=== PATIENT | female | born 2000 | race Caucasian/White ===

== ENCOUNTER 2023-06-21 18:25 | Emergency (ER) | payer OTHER, SELFPAY ==
[2023-06-21 18:55] VITALS: BP 133/68; PULSE 83; RESP 18; TEMP 36.9; O2SAT 99; BMI 19.5
--- NOTE | 2023-06-21 19:01 | DI.RAD.S_ITS ---
PROCEDURE: XR HAND RT MIN 3V INDICATIONS: animal bite/wound TECHNIQUE: 3 views of the hand(s) acquired. COMPARISON: None. FINDINGS: Bones: No fractures or dislocations. Carpal bones are normally aligned. No suspicious bony lesions. Soft tissues: Overlying bandage limits evaluation of soft tissue. No radiodense foreign body visualized. Subcutaneous lucency between the 4th and 5th MCP joints likely represent site of wound. No suspicious soft tissue calcifications. IMPRESSION: No acute bony abnormality. No radiodense foreign body visualized. Soft tissue lucency between the 4th and 5th MCP joints likely likely represent site of wound. Approved by: Carmen Lan M.D. on 06/21/2023 at 20:44
== END 2023-06-22 00:57 | disposition left against medical advice (07) ==
PROVIDERS: Emergency Provider Emergency Medicine
DX: S61.451A Open bite of right hand, initial encounter (principal); W54.0XXA Bitten by dog, initial encounter
CPT/HCPCS: 73130; 99281

== ENCOUNTER → 2024-06-01 13:37 | Outpatient (CLI) | payer OTHER, SELFPAY ==
--- NOTE | 2024-06-01 13:38 | DI.US.S_ITS ---
PROCEDURE: US OB >= 14 WEEKS FETUS INDICATIONS: ANATOMY OUTSIDE/PRIOR DATING DATA: Last menstrual period (LMP): 01/12/2024. LMP-based estimated date of delivery (ERIKA): 10/18/2024. First dating scan (date and location): 03/13/2024. Estimated date of delivery (ERIKA) from first dating scan: 10/21/2024. The calculations are made using the clinical ERIKA of 10/18/2024. TECHNIQUE: Real-time scanning was performed of the fetus, with image documentation and biometric measurements. Endovaginal scanning: Not performed COMPARISON: None. FINDINGS: General: A single living intrauterine gestation is present. Presentation: Variable. Placenta: Placental position is posterior. Low lying 1.9 cm from the internal cervical os. Amniotic fluid index: 20.2 cm, normal range is 5-24 cm. Single deepest vertical pocket is 7.4 cm. heart rate: 144 beats per minute. Maternal cervical canal: 4 cm long. Normal lower limit is 2.5 cm. biometrics: Biparietal diameter: 4.5 cm, 19 weeks 4 days Head circumference: 16.2 cm, 19 weeks 0 days. 5th percentile. Abdominal circumference: 15.7 cm, 20 weeks 6 days Femur length: 3.1 cm, 19 weeks 4 days Clinically estimated gestational age: 20 weeks 1 days Composite gestational age from present scan: 19 weeks 5 days Estimated weight and percentile: 330 g, 41st percentile Anatomic survey: Neuro: Ventricles are non-dilated at less than 10 mm. Cisterna magna is normal at 3-11 mm. Cerebellum is normal in size and morphology. Nuchal skin fold: Normal at less than 6 mm between 14-21 weeks gestational age. Face: Nose and lips, facial profile are normal. Spine: No evidence for spina bifida. Heart: 4-chambered heart is present, with normal ventricular outflow tracts. Diaphragm: Diaphragm is intact. Stomach: Left-sided stomach is present. Kidneys: No hydronephrosis. Normal is less than 5 mm in 2nd trimester, less than 7 mm in 3rd trimester. Cord: 3-vessel cord has orthotopic insertion. Bladder: Normal in size. Extremities: All 4 extremities identified. IMPRESSION: 1. Gong living intrauterine at 19 weeks 5 days based on today's ultrasound. Fetus is at the 41st percentile for weight. Head circumference measures at the 5th percentile. 2. Normal amniotic fluid. Placenta is low-lying 1.9 cm from the internal cervical os. 3. Normal and complete anatomic survey. Recommend follow-up OB ultrasound. We strive to produce accurate, complete, and clear reports of imaging services. To assist us in improving patient care, this report was composed using standard report templates and voice recognition software. Therefore, it may contain abnormal punctuation, insertions and/or omissions. Occasional wrong-word or sound-alike substitutions may occur. Though we review the report and make efforts to correct it, we do recommend that the report be read carefully in proper context to recognize any text inaccuracies. Dictated by: Benoit Gordon M.D. on 06/01/2024 at 21:07 Approved by: Benoit Gordon M.D. on 06/01/2024 at 21:13
== END ==
PROVIDERS: Referring Provider Nurse Practitioner Obstetrics & Gynecology; Visit Provider Nurse Practitioner Obstetrics & Gynecology
DX: O44.42 Low lying placenta NOS or without hemorrhage, second trimester (principal); Z3A.19 19 weeks gestation of pregnancy
CPT/HCPCS: 76811

== ENCOUNTER → 2024-07-05 13:34 | Outpatient (CLI) | payer OTHER, SELFPAY ==
--- NOTE | 2024-07-05 13:35 | DI.ECHO.S_ITS ---
[facility] : : [address] : : [place] : : [id number] : : Phone: [phone] Echocardiogram Report + + :Name: RADHA HULL Study Date: 07/05/2024 Height: 63 in : :[facility] ReadingLocation: Weight: 120 lb : : Gender: Female BSA: 1.6 m2 : :: 2000 Age: 23 yrs BP: 106/65 mmHg: :Reason For Study: CARDIAC MURMUR : :Ordering Physician: NKECHI PEREZ Performed By: Eliza Dawkins : :Referring: NKECHI PEREZ : + + Interpretation Summary 1. Left ventricular contractility is normal. Estimate ejection fraction is greater than 65% with no segmental wall motion abnormalities. No LVH. Normal diastolic function. 2. The right ventricular contractility is normal. 3. Left atrial enlargement noted. All other cardiac chambers are of normal size. 4. Mild pulmonic insufficiency. 5. No intracardiac shunts noted on agitated saline contrast study. 6. No obvious intracardiac masses nor thrombi. 7. No hemodynamically significant pericardial effusion. 8. Low right-sided filling pressures. Conclusion: Normal biventricular function with mild pulmonic insufficiency and isolated left atrial enlargement. Procedure: A two-dimensional transthoracic echocardiogram with color flow and Doppler was performed. The study quality was technically adequate. There is no prior echocardiogram noted for this patient. A saline contrast injection was performed to assess for cardiac shunting. The injection was performed through an intravenous line in the left arm. The patient was in sinus rhythm with heart rates between 65-78 bpm during the exam. Left Ventricle: The left ventricle is normal in size and wall thickness. The ejection fraction is estimated to be 65-70%. Right Ventricle: The right ventricle is normal in size and function. Atria: The left atrium is mildly dilated. Right atrial size is normal. There is no Doppler evidence for an interatrial shunt. Injection of contrast documented no interatrial shunt. Mitral Valve: The mitral valve leaflets appear to open well. There is no mitral annular calcification. There is trace mitral regurgitation. Aortic Valve: The aortic valve is trileaflet. The aortic valve opens well. There is no aortic valve stenosis. No aortic regurgitation is present. Tricuspid Valve: The tricuspid valve leaflets are thin and pliable. There is trace tricuspid regurgitation. Pulmonic Valve: The pulmonic valve leaflets are thin and pliable; valve motion is normal. There is mild pulmonic regurgitation. Great Vessels: The aortic root is normal size. The dimensions of the ascending aorta are normal. The IVC is of normal diameter and collapses greater than 50% with a sniff. This suggests a low right atrial pressure of 3 mm Hg. Pericardium/ Pleura There is no pericardial effusion. There is no pleural effusion. MMode/2D Measurements & Calculations LVIDd: 4.4 cm LVOT diam: 1.8 cm LVIDs: 2.7 cm Ao root diam: 2.2 cm FS: 38.2 % asc Aorta Diam: 2.5 cm EPSS: 0.18 cm Ao Arch Diam (Prox Trans): 2.3 cm IVSd: 0.63 cm LVPWd: 0.56 cm LV rg. diameter/BSA (cm/m^2): 2.8 LV sys. diameter/BSA (cm/m^2): 1.7 LA A2 area: 17.7 cm2 RA long axis: 4.8 cm LA A4 area: 16.9 cm2 RA area: 14.1 cm2 LA length (vol): 4.7 cm RA vol: 35.2 ml LA vol: 54.3 ml RA : 22.6 ml/m2 LA vol index: 34.9 ml/m2 IVC diam: 1.4 cm RVD1 (basal): 3.2 cm RVD2 (mid): 3.2 cm TAPSE: 2.1 cm Doppler Measurements & Calculations Ao V2 max: 176.2 cm/sec LVOT Max Rj: 132.9 cm/sec Ao V2 mean: 116.8 cm/sec LV V1 max P.1 mmHg Ao max P.4 mmHg LV V1 VTI: 28.3 cm Ao mean P.2 mmHg CAROLINE(I,D): 1.9 cm2 Ao V2 VTI: 36.7 cm CAROLINE(V,D): 1.8 cm2 sev ratio: 0.77 CAROLINE indexed to BSA (cm^2/m^2): 1.2 MV E max rj: 130.7 cm/sec PA V2 max: 129.1 cm/sec MV A max rj: 54.4 cm/sec PA V2 mean: 84.7 cm/sec MV E/A: 2.4 PA mean P.2 mmHg Med Peak E' Rj: 15.0 cm/sec PA pr(Accel): 26.3 mmHg E/E' med: 8.7 Lat Peak E' Rj: 21.3 cm/sec E/E' lat: 6.1 E/e' average: 7.4 MV dec time: 0.13 sec MVA(VTI): 2.2 cm2 MV V2 mean: 60.8 cm/sec SV(LVOT): 69.5 ml MV mean P.9 mmHg MV V2 VTI: 32.1 cm Reading Physician:TONIA
== END ==
PROVIDERS: Referring Provider Internal Medicine; Visit Provider Internal Medicine
DX: I37.1 Nonrheumatic pulmonary valve insufficiency (principal); R01.1 Cardiac murmur, unspecified
CPT/HCPCS: 93306

== ENCOUNTER → 2024-08-10 13:41 | Outpatient (CLI) | payer OTHER, SELFPAY ==
--- NOTE | 2024-08-10 13:42 | DI.US.S_ITS ---
PROCEDURE: US OB LIMITED INDICATIONS: FOLLOW UP PREVIA, GROWTH AND BPP OUTSIDE/PRIOR DATING DATA: Last menstrual period (LMP): January 12, 2024. LMP-based estimated date of delivery (ERIKA): October 18, 2024. First dating scan (date and location): March 13, 2024. Estimated date of delivery (ERIKA) from first dating scan: October 18, 2024. TECHNIQUE: Real-time scanning was performed of the fetus, with image documentation and biometric measurements. Endovaginal scanning: Not performed COMPARISON: [facility], OB >= 14 WEEKS FETUS, 06/01/2024, 13:43. FINDINGS: General: A single living intrauterine gestation is present. Presentation: Transverse head maternal right. Placenta: Placental position is posterior , without previa. No placenta previa visualized. Amniotic fluid index: 15.2 cm, normal range is 5-24 cm. Single deepest vertical pocket is 5.2 cm. heart rate: 132 beats per minute. Maternal cervical canal: 5.3 cm long. Normal lower limit is 2.5 cm. biometrics: Biparietal diameter: 7.7 cm, 30 weeks and 5 days Head circumference: 27.5 cm, 30 weeks and 0 days Abdominal circumference: 25.3 cm, 29 weeks and 3 days Femur length: 5.6 cm, 29 weeks and 2 days Clinically estimated gestational age: 30 weeks and 1 day Composite gestational age from present scan: 29 weeks and 6 days Estimated weight and percentile: 1410 g which correlates with the 19th percentile for gestational age Other: Biophysical profile score of 6 out of 8 with no respirations visualized. IMPRESSION: 1. Single living intrauterine gestation with estimated sonographic gestational age of approximately 29 weeks and 6 days. Estimated weight of approximately 1410 g which correlates with the 19th percentile for gestational age. Expected interval growth has occurred. 2. Biophysical profile score of 6 out of 8 (no respirations visualized). We strive to produce accurate, complete, and clear reports of imaging services. To assist us in improving patient care, this report was composed using standard report templates and voice recognition software. Therefore, it may contain abnormal punctuation, insertions and/or omissions. Occasional wrong-word or sound-alike substitutions may occur. Though we review the report and make efforts to correct it, we do recommend that the report be read carefully in proper context to recognize any text inaccuracies. Dictated by: Julio Walters M.D. on 08/10/2024 at 23:23 Approved by: Julio Walters M.D. on 08/10/2024 at 23:27
== END ==
PROVIDERS: Referring Provider Advanced Practice Midwife; Visit Provider Advanced Practice Midwife
DX: O44.03 Complete placenta previa NOS or without hemorrhage, third trimester (principal); Z3A.29 29 weeks gestation of pregnancy
CPT/HCPCS: 76815; 76819

== ENCOUNTER 2024-10-23 22:14 | Inpatient (IN) | payer OTHER, SELFPAY ==
--- NOTE | 2024-10-23 22:40 | PM.OBHP.1 ---
OB HPI Date/Time Date of admission: 10/23/24 Date Patient Seen: 10/23/24 Time Patient Seen: 22:40 History of Present Condition Chief complaint: LABOR : 1 Para: 0 Estimated Date of Delivery: 10/18/24 Estimated Gestational Age (weeks): 40w5d Narrative: Radha Choi is a 24 year old female at 40w5d by LMP and confirmed by early ultrasound and consistent with conception date. Radha had a membrane sweep this afternoon with CNM and called at 0 to report a gush of clear fluid with blood tinged mucus just prior to call. Had contractions starting approx 1800 coming approx every 3 minutes that became more intense with loss of fluld. Radha received care with CNMs complicated by heart mumur, evaluated by cardiology,diagnosed with mild pulmonic insufficiency and isolated left atrial enlargement but without concern for laboring. Radha's baby was in persistent breech presentation in 3rd trimester until 2nd ECV was successful on 10/02/2024. Baby has continued to be in a cephalic presentation since then and vertex was noted on exam in clinic and on admission today. Radha also had iron deficiency of treated with oral iron and IV iron dextran 500 mg dose x 1. She was planning an unmedicated , but is now reconsidering. Radha is well supported by her , Ever. They are excited to meet their son, Dennys. History of Present care: good care, initiated at week # (8), number of visits (13) and pounds weight gain (30) Dating criteria: LMP confirmed by 1st trimester US (and consistent with conception dating) Ultrasounds: normal 1st trimester US and normal mid trimester US Obstetrical complications: none (except as mentioned in HPI) Medical complications: cardiovascular (mild pulmonic insufficiency and isolated left atrial enlargement discovered during by ECHO) Preadmission Labs Blood type: O (+) positive -: Antibody screen: negative, Cystic fibrosis screen: unknown, GBS status: negative, HBsAG: negative, HIV: negative, HSV 1: unknown, HSV 2: unknown and RPR/VDLR: negative -: Chlamydia screen: not detected and Gonorrhea screen: not detected -: Rubella: immune and Varicella: immune HCT: 30.4 (38 at NOB, 31.3 at 27 weeks, 20.4 at 31 weeks with ferritin of 9 ) HCAB: negative PAP: Normal (April 2023.) Cell-free DNA: Negative screening x 3, XY 1 hr GTT: 120 Prior (ies) History: none Hx # Term Pregnancies: 0 Hx # Pregnancies: 0 Number of Living Children: 0 Multiple births: 0 Spontaneous abortions: 0 Ectopic pregnancies: 0 Elective abortions: 0 Evaluation Evaluation Baseline heart rate: 130 Variability: Moderate (6-25) monitor accelerations: Present Monitor Decelerations: Absent Contraction Frequency (minutes): 3 Uterine Contraction Intensity: Strong/Firm Status: Category l Dilation (cm): 4.5 Effacement (%): 90 Dilation: 3-4 cm Effacement: >/=80% station: 0 Position of cervix: mid Consistency: medium Jackson score: 9 PFSH Family History Grandmother Cancer Aunt Diabetes mellitus Mother Bipolar disorder Other Heart murmur Social History (Updated 10/24/24 @ 00:57 by Rebecca Reis CNM, JCARLOS) marital status: household members: spouse lives independently: Yes education level: college occupational status: employed current occupational exposures/hazards: No second hand exposure: No alcohol intake: former substance use type: does not use during the past year weight has: remained stable well-balanced diet: daily or most days Meds Home Medications and Allergies Allergies Allergy/AdvReac Type Severity Reaction Status Date / Time No Known Drug Allergies Allergy Verified 06/21/23 18:55 Review of Systems Review of Systems Narrative: negative except as mentioned in HPI OB Exam Vital signs Blood Pressure: 122/67 Pulse Rate: 64 Respiratory Rate: 18 Temperature: 98.3 F Objective Labs 10/23/24 22:45 Assessment and Plan Assessment and Plan Assessment and Plan narrative: at 40w5d by LMP Early labor SROM x 1 hour GBS negative FHR Cat 1 Admit to L&D for labor, usual labor orders. Epidural if desired. Anticipate NSVB. Time-Based Coding :: [TOTAL MINUTES] spent with patient and on the chart (including review of chart, obtaining history, exam, reviewing outside data, placing orders, documenting exam and treatment plan, and counseling patient) on [DATE].
[2024-10-23 23:02] LABS: Add Manual Diff / Slide Review NO; Hematocrit 34.6 % (36-46); Hemoglobin 12.1 g/dL (12.0-16.0); Lymphocytes Absolute Auto 2800 /uL (1100-4500); Mean Corpuscular HGB Conc 35.1 % (30-36); Mean Corpuscular Hemoglobin 32.5 PG (26-34); Mean Corpuscular Volume 92.5 fL (80-100); Platelet Count 261 X10^3/uL (150-400)
[2024-10-23] MEDS: ONDANSETRON 4 MG/2 ML INJ 8 MG IV (23:36)
--- NOTE | 2024-10-24 01:00 | PM.AN.REGBLK ---
Regional Block Pre-procedure PMH/ROS narrative: 24yr old requesting ABBIE with CSE for labor pain. Hx of echo during that showed mild pulmonic insufficiency and left atrial enlargement with no concerns for labor from cardiology ASA Class: II Labs: Hct 34.6 % (36-46) L 10/23/24 22:45 Plt Count 261 X10^3/uL (150-400) 10/23/24 22:45 Medications: Current Medications Generic Name Dose Route Start Last Admin Trade Name Freq PRN Reason Stop Dose Admin Acetaminophen 975 mg 10/23/24 22:33 Acetaminophen 325 Mg Tablet PO Q8H PRN Pain, Mild (1-3) Calcium Carbonate 1,000 mg 10/23/24 22:33 Calcium Carbonate 500 Mg Tab PO Q2HR PRN Dyspepsia Carboprost Tromethamine 250 mcg 10/23/24 22:33 Carboprost 250 Mcg/Ml Ampul IM Q90M PRN Bleeding Fentanyl 100 mcg 10/23/24 22:33 Fentanyl 100 Mcg/2 Ml Inj IV Q1H PRN Pain, Severe (7-10) Oxytocin/Lactated Ringer's 30 unit in 500 mls @ 200 mls/hr 10/23/24 22:33 Oxytocin Premix IV CONT PRN Bleeding Protocol Tranexamic Acid 1,000 mg/ 100 mls @ 600 mls/hr 10/23/24 22:33 Sodium Chloride IV NOW PRN Bleeding Lactated Ringer's 1,000 mls @ 100 mls/hr 10/23/24 22:45 Lactated Ringers IV 10/24/24 08:44 CONT CHEYANNE Lidocaine HCl 20 ml 10/23/24 22:33 Lidocaine 1% 20 Ml INJ INTRA-OP PRN Post Delivery Methylergonovine Maleate 0.2 mg 10/23/24 22:33 Methylergonovine 0.2 Mg Tablet PO Q6HR PRN Heavy Bleeding Methylergonovine Maleate 0.2 mg 10/23/24 22:33 Methylergonovine 0.2 Mg/Ml Vial IM NOW PRN Bleeding Mineral Oil 30 ml 10/23/24 22:33 Mineral Oil 30 Ml Udc TOP PRN PRN Version Misoprostol 800 mcg 10/23/24 22:33 Misoprostol 200 Mcg Tablet MT NOW PRN Bleeding Misoprostol 400 mcg 10/23/24 22:33 Misoprostol 200 Mcg Tablet SL NOW PRN Bleeding Naloxone HCl 0.2 mg 10/23/24 22:33 Naloxone 0.4 Mg/Ml Vial IV Q2MIN PRN Opiate Reversal Ondansetron HCl 8 mg 10/24/24 00:00 10/23/24 23:36 Ondansetron 4 Mg/2 Ml Inj IV 8 mg Q6HR CHEYANNE Administration Oxytocin 10 unit 10/23/24 22:33 Oxytocin 10 Unit/Ml Vial IM NOW PRN Bleeding Allergies: Allergies Allergy/AdvReac Type Severity Reaction Status Date / Time No Known Drug Allergies Allergy Verified 06/21/23 18:55 Procedure Insertion date: 10/24/24 Insertion time: 00:37 Prep/Local: 1% lidocaine (chloroprep) Interspace: L4-5 unable to find epidural space, L3-4 epi space easily found Patient position: sitting Needle: 18 gauge Magali (27g Kosta) Loss of resistance with: saline ARTI at (cm): 7 Catheter placed at SKIN (cm): 12 Catheter in SPACE (cm): 5 Insertion: No CSF, No Blood, No Paresthesia with insertion, No Paresthesia with injection and No Test dose reaction Initial Medications TEST DOSE time: 00:38 TEST DOSE: 1.5% lidocaine with epinephrine 1:200k (mL): 3 BOLUS DOSE time: 00:42 BOLUS DOSE (mL): 2 BOLUS DOSE med: other (lido 1.5% with epi/ CSE dose 1cc 0.25% bupivicaine) Infusion INFUSION: 0.125% bupivacaine and with fentanyl 2 mcg/mL Initial rate (mL/hr): 7 Post-procedure Anesthesia date START: 10/24/24 Anesthesia time START: 00:15 Anesthesia date END: 10/24/24 Anesthesia time END: 06:19 Post-procedure Anesthesia Assessment: Yes CV function: HR/BP stable, Yes Resp function: RR/sat/airway adequate, Yes Post-op hydration adequate, Yes Pain control adequate, Yes Nausea & vomiting absent, Yes Temperature > 36 C and Yes Mental status appropriate
[2024-10-24 01:03] VITALS: BP 122/67; PULSE 64; RESP 18; TEMP 36.8
--- NOTE | 2024-10-24 01:03 | PM.OBPNLAB ---
Date/Time Date Patient Seen: 10/24/24 Time Patient Seen: 01:03 Pain Control Pain control: epidural Comments: Radha worked hard with labor, overall coping well but not enjoying it, saying, it's going so fast! Quickly dliated to 10 cm and CNM at beside continuously from [id number] providing comfort, support, management of labor. Radha began spontaneously pushing approx 2315 and was found to be complete at 2332 with exam while on hands and knees. Anesthesia delayed due to first IV coming out; tegaderm seems not to stick well to her skin. 2nd IV and ondansetron given approx 2330 due to nausea and to prepare for epidural anesthesia. Pelvic Exam Dilation (cm): 10 Effacement (%): 100 station: +1 Amniotic membrane status: Ruptured Contractions Contractions on admission: regular Monitor mode: External Contraction frequency (min): 3 Contraction duration (min): 1 Contraction pattern: Regular Contraction intensity: Strong/Firm Status status: Category l Heart Rate Baseline: 105 Monitor Accelerations: Present Monitor Decelerations: Absent Monitor Variability: Moderate Comments: Difficult to keep continuous tracing; able to hear baby almost continuously without concerns. Assessment and Plan Assessment: active labor (2nd stage labor) Plan: continuous present management Comments: in 2nd stage labor GBS negative SROM x 3.5 hours FHR Cat 1 Rest with epidural. Resume pushing in 1 hour. Pain Control Pain control: epidural Pelvic Exam Dilation (cm): 10 Effacement (%): 100 station: +1 Amniotic membrane status: Ruptured Contractions Monitor mode: External Contraction frequency: 3 Contraction duration: 1 Contraction pattern: Regular Contraction intensity: Strong/Firm Status status: Category l Assessment and Plan Assessment: active labor (2nd stage labor) Plan: continuous present management
[2024-10-24 01:48] VITALS: BP 104/58
--- NOTE | 2024-10-24 04:01 | PM.OBPNLAB ---
Date/Time Date Patient Seen: 10/24/24 Time Patient Seen: 04:02 Pain Control Pain control: epidural Comments: Radha pushing well. Progress slow. CNM providing bedside support. IV came out earlier, and found to be leaking, so RN working on fixing it. Tegaderm does not stick well to her skin. Pelvic Exam Dilation (cm): 10 Effacement (%): 100 station: +2 Amniotic membrane status: Ruptured Comments: VS: 121/63, HR 80 bpm, SpO2 98%, 98.5 F Contractions Monitor mode: External Contraction frequency (min): 3 Contraction pattern: Regular Contraction intensity: Strong/Firm Status status: Category l Heart Rate Baseline: 155 Monitor Accelerations: Present Monitor Decelerations: Early, Late and Variable Monitor Variability: Moderate Assessment and Plan Comments: at 40w 6d GBS negative 2nd stage labor FHR Cat 2 ROM x 10 hours, clear fluid Continue pushing Anticipate NSVB
[2024-10-24] MEDS: CALCIUM CARBONATE 500 MG TAB 1000 MG PO (04:30)
[2024-10-24] MEDS: LACTATED RINGERS 1,000 ML 100 ML IV (04:31)
--- NOTE | 2024-10-24 06:38 | P.PCNOB_ITS ---
Labor & Delivery Delivery date: 10/24/24 Delivery Time: 06:19 Intrapartal Events: Prolonged 2nd Stage > 2.5 hours Delivery monitor: external FHT Route of delivery: L&D Laceration Description: Periurethral - 1st Degree Delivery repair: chromic Quantitative Blood Loss: 100 Anesthesia Type: Epidural Narrative: Labor progressed quickly. Radha pushed approx 45 minutes and then requested epidural. Rested until resumed pushing at 0253 when she felt the urge to push. She pushed well but due to slight acynclitism had a > 3 hour 2nd stage. FHR was Category 2 throughout 2nd stage. JOSE Uriostegui, came in to support delivery, caught baby, did repair. NSVB of baby at 0619, shoulders delivered easily. Baby was placed on maternal abdomen and stimulated; had good tone but low HR and poor respiration despite obvious effort. 3 vessel cord clamped and cut by JOSE Fernandez who took baby to warmer for suction of thick, clear mucus, stimulation, and to evaluate SpO2. Initially, he was working hard to breathe, but always met SpO2 targets. Apgars 5/9. Placenta delivered spontaneously with maternal efforts and appeared to be intact. Pitocin @ 334 mu/min started for AMTSL with delivery. Cord blood collected for blood typing PRN. Perineum inspected and found to be intact. Bleeding periurethral laceration on R repaired by Gila. Blood loss measured and estimated loss is 100 mL. Mom and baby left stable and skin to skin to initiate . Radha and Ever are thrilled to meet their son, Dennys. Rebecca GARBER CNM, IBCLC [place] Baby 1: Infant gender: Male Presentation: vertex Position: Right Occiput Anterior Placenta delivery description: Spontaneous Cord Vessel Description: 3 Vessels score (1 min): 5 score (5 min): 9 weight: 2.894 kg Plan for aftercare: Routine care
[2024-10-24] MEDS: ACETAMINOPHEN 325 MG TABLET 650 MG PO ×3 (08:30→21:10)
[2024-10-24] MEDS: KETOROLAC 30 MG/ML VIAL IV (08:35)
[2024-10-24] MEDS: IBUPROFEN 600 MG TABLET PO ×2 (15:01→21:10)
--- NOTE | 2024-10-24 20:05 | PM.OBPN.1 ---
Subjective - OB Subjective Interval history: Phone call: RN called to report that Radha was unable to void, so was straight cathed for 1700 mL of urine approx noon. Has still not been able to void,despite trying all the tricks including relaxing on the toilet, peppermint oil, water sounds, etc. Otherwise, Radha doing well, bleeding moderate, uterus midline. She had a good 2 hour nap, eating well, passing gas. Perez catheter inserted approx 1900 with approx 350 mL urine output at that time. Exam Vital Signs (past 8 hours): Vital signs stable, with normal bleeding. Objective Labs 10/23/24 22:45 Labs: Laboratory Results - last 24 hr 10/23/24 22:45 WBC 15.7 H RBC 3.74 L Hgb 12.1 Hct 34.6 L MCV 92.5 MCH 32.5 MCHC 35.1 RDW 12.8 Plt Count 261 Neut % (Auto) 71.9 Lymph % (Auto) 18.0 L Churchill % (Auto) 7.9 Eos % (Auto) 1.3 L Baso % (Auto) 0.9 Neut # (Auto) 61154 H Lymph # (Auto) 2800 Churchill # (Auto) 1200 H Eos # (Auto) 200 Baso # (Auto) 100 Blood Type O Positive Antibody Screen Negative Assessment & Plan Plan day: 0 plan OB: routine care and discharge home (tomorrow after normal voiding established) Comments: urinary retention in on PP day 0 Recommend perez catheter be inserted overnight. To be removed tomorrow to do voiding test prior to discharge home. Time-Based Coding :: [TOTAL MINUTES] spent with patient and on the chart (including review of chart, obtaining history, exam, reviewing outside data, placing orders, documenting exam and treatment plan, and counseling patient) on [DATE].
[2024-10-24] MEDS: LANOLIN OINT 7 GM 1 APPLIC TOP (21:09)
[2024-10-24] MEDS: DERMOPLAST SPRAY 20% 60 ML 1 SPRAY TOP (21:09)
[2024-10-24] MEDS: SENNOSIDES 8.6 MG TABLET 17.2 MG PO (21:10)
[2024-10-25] MEDS: ACETAMINOPHEN 325 MG TABLET 650 MG PO ×4 (05:01→22:56)
[2024-10-25] MEDS: IBUPROFEN 600 MG TABLET PO ×4 (05:02→22:56)
--- NOTE | 2024-10-25 06:33 | PM.OBPN.1 ---
Subjective - OB Subjective Interval history: PPD1: Stable s/p NSVB with urinary retention. Mauricio catheter in place since 1854 last night. Sitting up in bed, holding her son. Pain is well controlled with PO medication. Vaginal bleeding is light, without clots. Has not ambulated overnight, but hoping to shower today. Has been able to rest overnight, but worried because her son is sleepy and not well. Has been able to give him previously expressed colostrum. Partner remains present and supportive. Exam Vital Signs (past 8 hours): BP 109/76, HR 86bpm, RR 16, T 97.4F Temporal, SpO2 98% on RA Const General: cooperative, healthy appearing, comfortable, well developed and well groomed Other: Fundus firm @ U-2, lochia scant. Mauricio catheter in place draining clear yellow urine. Extrem General: normal to inspection Psych Appearance: grossly normal Mood: congruent mood Affect: normal affect Objective Labs 10/23/24 22:45 Assessment & Plan Assessment and Plan (1) Encounter for vaginal delivery: Status: Acute (2) Urinary retention: Status: Acute Plan day: 1 plan OB: other Comments: Plan to d/c Mauricio catheter 24 hours after insertion (1854 this evening). Trial of void overnight and likely d/c in am tomorrow. Time-Based Coding :: [30] spent with patient and on the chart (including review of chart, obtaining history, exam, reviewing outside data, placing orders, documenting exam and treatment plan, and counseling patient) on [DATE].
[2024-10-26] MEDS: ACETAMINOPHEN 325 MG TABLET 650 MG PO (05:06)
[2024-10-26] MEDS: IBUPROFEN 600 MG TABLET PO (05:06)
--- NOTE | 2024-10-26 06:37 | P.DS_ITS ---
Discharge Providers Provider Date of admission: 10/23/24 22:14 Discharge Date: 10/26/24 Primary care physician: Sylvia CALIX Provider Consults: 10/23/24 22:33 Consult to Anesthesiology Urgent Comment: Consulting Provider: Anesthesiologist Reason for consultation: Epidural Has provider been notified: No 10/24/24 06:53 Consult to Data Solutions Architect Routine Comment: Discharge provider: Gila Cardoza CNM Summary Hospital Course Date Patient Seen: 10/26/24 Time Patient Seen: 06:38 Diagnoses: O80, O63.1, R33.9 Hospital Course: Spontaneous labor progressed rapidly without augmentation. Epidural was placed during prolonged second stage leading to NSVB of a healthy SGA baby boy. urinary retention improved after 24 hours of Mauricio catheter placement. PPD2: Stable s/p NSVB. Voiding ambulating and independently. Adequate voiding with minimal residual confirmed with bladder scanner x12 hours overnight after Mauricio was discontinued. Pain is well controlled with PO medication. Vaginal bleeding is light without clots. Partner remains present and supportive and they are feeling ready for discharge to home with their son Cullen. Peripartum Data Infant Delivery Method: Natural Vaginal Laceration Description: Periurethral - 1st Degree Episiotomy description: None Procedures: O80 complications: other (urinary retention) [place] 1: Gender: Male Disposition of : home Discharge Diagnosis (1) Encounter for vaginal delivery: Status: Acute (2) Urinary retention: Status: Acute (3) Labor with prolonged second stage: Status: Acute Status at Discharge Cognitive/behavioral status at discharge: oriented and calm Functional status at discharge: independent ambulation Overall status at discharge: patient is progressing back to baseline Time Spent with Patient Time attestation: Total time spent providing and/or coordinating discharge services: Time spent: Less than 30 minutes Objective Labs 10/23/24 22:45 Exam Vital Signs (past 8 hours): BP 109/73, HR 64bpm, RR 17, T 97.3F Temporal, SpO2 99% Resp Effort & Inspection: normal respiratory effort and able to speak in complete sentences Cardio Palpation: normal PMI Rate: regular rate Other: Fundus firm @ U-1, lochia small without clots, minimal perineal edema Psych Mood: congruent mood Affect: normal affect Discharge Plan Discharge Plan Patient Disposition: Home Discharge orders & Medications Prescriptions: New ibuprofen 600 mg Tablet 600 mg PO Q6H 14 Days Qty: 56 0RF No Action No Known Home Medications Follow up/Referrals: ProviderSylvia [Primary Care Provider, Family Practice] Gila Cardoza CNM [[employer], RESIDENT CARE SUPER[employer]OR] Referral Note: Follow-up in 2 weeks and 6 weeks in office. Your appointments are in your email. Diet/Activity/Treatments Diet: Diet as Tolerated and Regular Activity: bed rest x 2 weeks, pelvic rest x 6 weeks Skin/Wound/Dressing Care Report to your healthcare provider any signs of infection, such as:: chills, fever, increased pain, unusual drainage and unusual redness Visit Report/Discharge Packet Instructions: Depression Stand Alone Forms: Patient Portal/API, Stroke Signs & Symptoms Discharge Data Primary Care Provider: ProviderSylvia
[2024-10-26 10:33] VITALS: BP 122/75; PULSE 67; RESP 16; TEMP 36.4
== END 2024-10-26 10:00 | disposition home or self-care (01) | DRG 807 ==
PROVIDERS: Admitting Provider Advanced Practice Midwife; Referring Provider Advanced Practice Midwife; Visit Provider Advanced Practice Midwife
DX: O42.02 Full-term premature rupture of membranes, onset of labor within 24 hours of rupture (principal); Z37.0 Single live birth; O63.1 Prolonged second stage (of labor); Z3A.40 40 weeks gestation of pregnancy; O71.82 Other specified trauma to perineum and vulva; O76 Abnormality in fetal heart rate and rhythm complicating labor and delivery; O90.89 Other complications of the puerperium, not elsewhere classified; R33.8 Other retention of urine
CPT/HCPCS: 36415; 59050; 85025; 86850; 86900; 86901; G0379; J1885; J2405